=== PATIENT | female | born 1970 | race Caucasian/White ===

== ENCOUNTER 2018-06-20 11:15 | Emergency (ER) | payer OTHER ==
[~2018-06-20] VITALS: Ht 167.6 cm; Wt 108.9 kg
[2018-06-20 11:21] VITALS: BP 115/71
--- NOTE | 2018-06-20 11:48 | ED HEAD/FACIAL INJ COMPLAINT ---
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 BLEEDING CONTROLLED IN TRIAGE. UNSURE OF LAST TETANUS SHOT. Triage Nurses Notes Reviewed? yes Onset: Abrupt Severity: mild Severity Numbers: 4 Location: oral/mandibular Method of Injury: direct blow Loss of Consciousness: no loss of consciousness HPI: 47-year-old female presents to the emergency department reporting about 40 minutes ago she was pulling on the ice pack towards her face and with a direct blow and hit her mouth. She immediately began bleeding from a cut on her inner lip. She has been applying ice to the area. She reports pain 4 out of 10. She denies any blood thinners or any medical conditions. She denies head trauma or loss of consciousness. Patient uncertain if she is up to date with her vaccination. Past History Travel History Traveled to [place] past 21 day No Medical History Any Pertinent Medical History? 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 No Review of Systems Review of Systems Constitutional: Reports: see HPI. EENTM: Reports: see HPI. Respiratory: Reports: no symptoms. Cardiovascular: Reports: no symptoms. GI: Reports: no symptoms. Genitourinary: Reports: no symptoms. Musculoskeletal: Reports: no symptoms. Skin: Reports: see HPI. Neurological/Psychological: Reports: no symptoms. Hematologic/Endocrine: Reports: no symptoms. Immunologic/Allergic: Reports: no symptoms. All Other Systems: Reviewed and Negative Physical Exam Physical Exam General Appearance: well developed/nourished, no apparent distress, alert Head: atraumatic, normal appearance Eyes: Bilateral: normal appearance, EOMI. Ears, Nose, Throat: hearing grossly normal, moist mucus membranes, inner lip about 2cm laceration not actively bleeding about 1/3 cm deep. Minimally tender and swollen. No purulent discharge. Neck: normal inspection, supple, full range of motion Respiratory: no respiratory distress Extremities: normal inspection, normal range of motion Psychiatric: awake, alert, oriented x 3 Cranial Nerves: normal hearing, normal speech Motor/Sensory: no motor/sensory deficits Skin: normal color, warm/dry Progress Differential Diagnosis: lip laceration Plan of Care: Current Medications Sig/Jeni Start time Last Medication Dose Stop Time Status Admin Lidocaine 0 .STK-MED ONE 06/20 1145 CAN (Lidocaine 1%) 47-year-old female with inner lip laceration, not actively bleeding. No indication for sutures to the area, patient agreed with plan. Td administered. Advised to apply ice to the area, follow up with her pcp this week. Return with new or worsening symptoms. Departure Departure Disposition: HOME OR SELF CARE Condition: Stable Clinical Impression Primary Impression: Laceration of lip without complication Qualifiers: Encounter type: initial encounter Qualified Code: S01.511A - Laceration without foreign body of lip, initial encounter Referrals: Fernanda GONSALEZ,Bro Garcia (PCP/Family) Additional Instructions: Alternate ibuprofen and Tylenol as needed for pain. Ice applied to the area. Follow-up with your primary care provider this week. Return to the emergency department with new or worsening symptoms. Departure Forms: Customer Survey General Discharge Information Follow-up with your primary care provider this week. Return to the emergency department with new or worsening symptoms. Departure Forms: Customer Survey General Discharge Information
== END 2018-06-20 11:54 ==
LOC: ERH 11:15
DX: S01.511A Laceration without foreign body of lip, initial encounter (principal); W22.8XXA Striking against or struck by other objects, initial encounter; Y92.9 Unspecified place or not applicable; Y93.9 Activity, unspecified
CPT/HCPCS: 90471; J2001